=== PATIENT | female | born 1980 | race Caucasian/White ===

== ENCOUNTER 2021-03-23 22:41 | Emergency (ER) | payer OTHER ==
[~2021-03-23] VITALS: Ht 154.9 cm; Wt 78.0 kg
[2021-03-23] MEDS ORDERED: LEVOTHYROXINE25 MC1 PO (23:05)
[2021-03-23] MEDS ORDERED: MIRAPEX 0.250.25 M1 PO (23:06)
[2021-03-23] MEDS ORDERED: WEGOVY2.4 MG/0.7 SUBQ (23:07)
[2021-03-24 00:06] LABS: HEMATOCRIT 42.4 % (37.0-47.0); HEMOGLOBIN 14.1 gm/dL (12.0-15.0); MCH 29.7 pg (26.0-34.0); MCHC 33.3 g/dL (28.0-37.0); MCV 89.3 fL (80.0-100.0); MPV 7.8 fl. (7.2-11.1); NUCLEATED RBCS 0 /100WBC; PLATELET COUNT* 402 thou/uL (150-400); RBC 4.75 mil/uL (4.20-5.00); RDW-CV 12.7 % (10.5-14.5); WBC 21.7 thou/uL (4.0-11.0)
[2021-03-24 00:14] LABS: CALCIUM 8.6 mg/dL (8.5-10.1); CREATININE 0.8 mg/dL (0.6-1.3); POTASSIUM 3.2 mmol/L (3.5-5.1)
[2021-03-24 00:24] LABS: ALBUMIN 3.9 g/dL (3.4-5.0); MAGNESIUM 1.9 mg/dL (1.8-2.4); TOTAL BILIRUBIN 0.4 mg/dL (<0.1-1.0)
[2021-03-24 00:26] LABS: URINE BILIRUBIN NEGATIVE (Negative); URINE BLOOD NEGATIVE (Negative); URINE CLARITY CLEAR; URINE COLOR YELLOW; URINE GLUCOSE-RANDOM NEGATIVE (Negative); URINE KETONES TRACE (Negative); URINE LEUKOCYTES-REFLEX NEGATIVE (Negative); URINE NITRITE-REFLEX NEGATIVE (Negative); URINE PROTEIN NEGATIVE (Negative); URINE SPECIFIC GRAVITY >= 1.030 (1.005-1.030); URINE UROBILINOGEN 0.2 E.U./dl (0.2-1.0)
[2021-03-24 00:30] LABS: INFLUENZA A ANTIGEN Negative (Negative); INFLUENZA B ANTIGEN Negative (Negative)
[2021-03-24] MEDS ORDERED: TRANSDERM-SCOP1 EACH TRANSDERM (01:44)
[2021-03-24 02:07] LABS: ABSOLUTE LYMPHOCYTES 6.3 thou/uL (0.8-5.3); ABSOLUTE MONOCYTES 1.1 thou/uL (0.0-1.2); ABSOLUTE NEUTROPHILS 14.3 thou/uL (1.6-8.1); PLATELET ESTIMATE ADEQUATE; TOXIC GRANULATION Occasional
[2021-03-24 02:17] VITALS: BP 141/93
--- NOTE | 2021-03-24 09:15 | EKG ---
[place] [address] ELECTROCARDIOGRAM REPORT Name: LAYA CAT Room: [facility]#: [id number] Admission: 03/23/21 Attend Phys: Discharge: 03/24/21 Date of : 84 Date of Service: 03/24/219 Report #: [id number] THIS REPORT FOR: //name// [facility] ED Test Date: 2021-03-24 Test Time: 00:10:51 Pat Name: LAYA CAT Department: Room: Gender: Respiratory Care Technician: : 1980 Requested By: Kervin Iglesias Order Number: [id number] MD: Ej Childs Measurements Intervals [place] Rate: 79 P: 7 OK: 167 QRS: 15 QRSD: 81 T: 29 QT: 376 QTc: 432 Interpretive Statements Sinus rhythm Borderline low voltage, extremity leads No previous ECG available for comparison Electronically Signed On 03-24-2021 9:15:21 [employer]PER[employer] ELEMENT[employer] EDUCATION by Ej Childs [email or web address] <ELECTRONICALLY SIGNED> By: Ej Childs MD, [facility] 03/24/21 0915 0010 Ej Childs MD, FAC /EPI
== END 2021-03-24 02:18 | disposition home or self-care (01) ==
LOC: M.ERS 22:41
PROVIDERS: Physician Assistant Medical
DX: B34.9 Viral infection, unspecified (principal); Z20.822 Contact with and (suspected) exposure to COVID-19; R42 Dizziness and giddiness; J02.9 Acute pharyngitis, unspecified; E03.9 Hypothyroidism, unspecified; Z79.899 Other long term (current) drug therapy